=== PATIENT | female | born 1965 | race Caucasian/White ===

== ENCOUNTER 2018-05-05 10:08 | Emergency (ER) | payer OTHER ==
[2018-05-05 10:18] VITALS: BMI 22.8
[2018-05-05 10:20] VITALS: TEMP 98.3; O2SAT 100
--- NOTE | 2018-05-05 10:39 | ED PDOC ---
HPI: Female Pain Time Seen by Provider: 05/05/18 10:22 Chief Complaint (Nursing): Female Genitourinary History Per: Patient Onset/Duration Of Symptoms: Days (2) Current Symptoms Are (Timing): Still Present Severity: Moderate Quality Of Discomfort: Burning Additional Complaint(s): Burning pain and swelling to genitalia x 2 days. Assoc with vesicular rash. Pt states she is monogomous with . Denies fever or abd pain. Past Medical History Vital Signs: Last Vital Signs Temp 98.3 F 05/05/18 10:18 Pulse 117 H 05/05/18 10:18 Resp 20 05/05/18 10:18 BP 158/78 H 05/05/18 10:18 Pulse Ox 100 05/05/18 10:18 - Medical History PMH: No Chronic Diseases - Family History Family History: States: Unknown Family Hx - Immunization History Hx Tetanus Toxoid Vaccination: No Hx Influenza Vaccination: No Hx Pneumococcal Vaccination: No - Home Medications Home Medications: Ambulatory Orders Medication Instructions Recorded Acetaminophen with Codeine 1 tab PO Q8H #10 tab 05/05/18 [Tylenol with Codeine No. 3 300 mg-30 mg] Valacyclovir HCl [Valtrex] 1 gm PO TID #30 tablet 05/05/18 - Allergies Allergies/Adverse Reactions: Allergies Allergy/AdvReac Type Severity Reaction Status Date / Time Unobtainable Allergy Verified 05/05/18 10:22 Review of Systems Constitutional: Negative for: Fever Gastrointestinal: Negative for: Abdominal Pain Genitourinary Female: Positive for: Rash, Other (Burning, swelling). Negative for: Pelvic Pain Physical Exam - Physical Exam Appears: Positive for: Non-toxic, No Acute Distress Gastrointestinal/Abdominal: Positive for: Soft. Negative for: Tenderness Pelvic Exam: Positive for: Other (Vesicular rash on labia majora assoc with swelling and erythema. No discharge.) - ECG O2 Sat by Pulse Oximetry: 100 Disposition - Clinical Impression Clinical Impression: Genitourinary Pain, Herpes genitalia - Patient ED Disposition Is Patient to be Admitted: No Counseled Patient/Family Regarding: Diagnosis, Need For Followup, Rx Given - [facility]position [facility] Disposition: Routine/Home Disposition Time: 10:41 Condition: FAIR Prescriptions: Acetaminophen with Codeine [Tylenol with Codeine No. 3 300 mg-30 mg] 1 tab PO Q8H #10 tab Valacyclovir HCl [Valtrex] 1 gm PO TID #30 tablet Instructions: Genital Herpes Print Language: [place]
[2018-05-05 11:37] VITALS: BP 136/78; PULSE 98; RESP 18
[2018-05-08 22:25] LABS: INTERPRETATION PAST INFECTION
== END 2018-05-05 11:37 | disposition home or self-care (01) ==
LOC: H.ER 10:08
DX: A60.00 Herpesviral infection of urogenital system, unspecified (principal)